=== PATIENT | male | born 1965 | race Caucasian/White ===

== ENCOUNTER → 2018-10-25 | Outpatient (CLI) | payer BC ==
[2018-10-25 11:53] LABS: ADD MAN DIFF? NO
[2018-10-25 12:06] LABS: WHITE BLOOD COUNT 2.9 10^3/ul (4.8-10.8)
[2018-10-25 12:06] LABS: ABNORMAL IP MESSAGE 1; BASOPHILS % 0.3 % (0.0-2.0); EOSINOPHILS % 1.4 % (0.0-7.0); HEMATOCRIT 47.4 % (42.0-52.0); HEMOGLOBIN 15.6 g/dl (14.0-18.0); LYMPHOCYTES # 0.6 10^3/ul (0.8-2.9); LYMPHOCYTES % 20.2 % (15.0-51.0); MEAN CORPUSCULAR HEMOGLOBIN 30.4 pg (29.0-33.0); MEAN CORPUSCULAR HGB CONC 32.9 g/dl (32.0-37.0); MEAN CORPUSCULAR VOLUME 92.2 fl (82.0-101.0); MEAN PLATELET VOLUME 11.3 fl (7.4-10.4); MONOCYTE # 0.4 10^3/ul (0.3-0.9); MONOCYTES % 14.4 % (0.0-11.0); NEUTROPHIL # 1.9 10^3/ul (1.6-7.5); NEUTROPHILS % 63.7 % (39.0-77.0); PLATELET COUNT 209 10^3/UL (140-415); POSITIVE DIFF @See below; RED BLOOD COUNT 5.14 10^6/ul (4.70-6.10); RED CELL DISTRIBUTION WIDTH 12.5 % (11.5-14.5)
[2018-10-25 12:09] LABS: HEMOGLOBIN A1C 5.3 % (0-5.9)
[2018-10-25 12:23] LABS: ALANINE AMINOTRANSFERASE 71 IU/L (13-69); ALBUMIN 4.7 g/dl (3.3-4.9); ALBUMIN/GLOBULIN RATIO 1.67; ALKALINE PHOSPHATASE 64 IU/L (42-121); ANION GAP 4 (5-13); ASPARTATE AMINO TRANSFERASE 41 IU/L (15-46); BILIRUBIN,INDIRECT 0.4 mg/dl (0-1.1); BILIRUBIN,TOTAL 0.4 mg/dl (0.2-1.3); BLOOD UREA NITROGEN 16 mg/dl (7-20); CALCIUM 9.6 mg/dl (8.4-10.2); CARBON DIOXIDE 30 mmol/L (21-31); CHLORIDE 109 mmol/L (97-110); CHOL/HDL RATIO 3.8 RATIO; CHOLESTEROL 138 mg/dl (100-200); Estimated GFR > 60 mL/min (>60); GLUCOSE 89 mg/dl (70-220); HDL CHOLESTEROL 36 mg/dl (28-71); LDL CHOLESTEROL,CALCULATED 70 mg/dl; POTASSIUM 5.2 mmol/L (3.5-5.1); SODIUM 143 mmol/L (135-144); TOTAL PROTEIN 7.5 g/dl (6.1-8.1); TRIGLYCERIDES 162 mg/dl (0-149)
== END | disposition home or self-care (01) ==
LOC: LAB 09:54
DX: R73.03 Prediabetes (principal); E78.5 Hyperlipidemia, unspecified; M19.011 Primary osteoarthritis, right shoulder; M47.892 Other spondylosis, cervical region
CPT/HCPCS: 72040; 73030-RT; 80053; 80061; 83036; 85025

== ENCOUNTER 2019-02-18 11:50 | Emergency (ER) | payer BC ==
[2019-02-18] MEDS: KETOROLAC 30 MG INJ IM (12:55)
== END 2019-02-18 14:10 | disposition home or self-care (01) ==
LOC: FTE 14:10
DX: S59.911A Unspecified injury of right forearm, initial encounter (principal); X58.XXXA Exposure to other specified factors, initial encounter; Y92.9 Unspecified place or not applicable
CPT/HCPCS: 73110; 73110-RT; 96372; 99284-25